=== PATIENT | male | born 2000 | race African-American/Black ===

== ENCOUNTER 2025-07-31 07:51 | Emergency (ER) | payer OTHER ==
[~2025-07-31] VITALS: Ht 177.8 cm; Wt 90.9 kg
[2025-07-31] MEDS: NS (Normal Saline) 0.9% 1,000 ML IV ONE (10:08)
[2025-07-31] MEDS: ACETAMINOPHEN *IV* 1,000 MG in IV 1 EA IV ONE (10:09)
[2025-07-31] MEDS: ONDANSETRON 4MG/2ML VIAL IV ONE (12:29)
[2025-07-31] MEDS: MORPHINE 4 MG/ML 1 ML VIAL IV PRN (12:34)
[2025-07-31 13:12] LABS: AMPHETAMINES LEVEL URINE NEGATIVE (NEGATIVE); BARBITURATES URINE NEGATIVE (NEGATIVE); BENZODIAZEPINES URINE NEGATIVE (NEGATIVE); CANNABINOIDS URINE NEGATIVE (NEGATIVE); COCAINE METABOLITE URINE NEGATIVE (NEGATIVE); METHADONE URINE NEGATIVE (NEGATIVE); OPIATES URINE NEGATIVE (NEGATIVE); PHENCYCLIDINE URINE NEGATIVE (NEGATIVE)
[2025-07-31 14:17] VITALS: BP 140/78; TEMP 98.1; O2SAT 96
== END 2025-07-31 14:40 | disposition short-term general hospital (02) ==
LOC: M ED 07:51
DX: S02.2XXA Fracture of nasal bones, initial encounter for closed fracture (principal); S02.32XA Fracture of orbital floor, left side, initial encounter for closed fracture; H50.632 Inferior rectus muscle entrapment, left eye; Y04.8XXA Assault by other bodily force, initial encounter; Y92.59 Other trade areas as the place of occurrence of the external cause; Y93.9 Activity, unspecified; Y99.9 Unspecified external cause status; F17.200 Nicotine dependence, unspecified, uncomplicated; F17.290 Nicotine dependence, other tobacco product, uncomplicated
CPT/HCPCS: 70450; 70486; 72125; 73110; 73130; 80307; 96365; 96366; 96375; 99284; J0134; J2405